=== PATIENT | female | born 1985 | race Caucasian/White ===

== ENCOUNTER 2017-04-25 12:03 | Emergency (ER) | payer OTHER, MEDICAID ==
[2017-04-25 12:13] VITALS: TEMP 97.9
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
[2017-04-25 14:36] VITALS: BP 127/84; PULSE 82; RESP 16; O2SAT 97
== END 2017-04-25 14:37 | disposition home or self-care (01) ==
DX: S70.12XA Contusion of left thigh, initial encounter (principal); V48.5XXA Car driver injured in noncollision transport accident in traffic accident, initial encounter; Y92.410 Unspecified street and highway as the place of occurrence of the external cause; Y99.8 Other external cause status; Y93.89 Activity, other specified